=== PATIENT | male | born 1985 | race Caucasian/White ===

== ENCOUNTER 2017-02-11 01:03 | Emergency (ER) | payer SELFPAY ==
[~2017-02-11] VITALS: Ht 177.8 cm; Wt 101.0 kg
[~2017-02-11 01:03] MED LIST: NO CURRENT MEDS
[2017-02-11 01:05] VITALS: Ht 177.8 cm; Wt 101.0 kg
[2017-02-11] MEDS ORDERED: ONDANSETRON 4 MG INJ IV STA (01:33)
[2017-02-11] MEDS ORDERED: SOD CHLORIDE 0.9% 1,000 ML IV STA (01:33)
--- NOTE | 2017-02-11 01:42 | ERD ---
ER Documentation Chief Complaint Date/Time DATE: 02/11/17 TIME: 01:39 Chief Complaint dizziness since 1 hour ago, pt did not eat lunch and dinner today HPI 31-year-old male presents to emergency department for complaints of episodes of dizziness after having episodes of vomiting and bowel movements diarrhea tonight. Patient was in the bathroom, was having a bowel movement, having diarrhea and vomiting episodes, started to feel dizzy afterwards. Patient has not eaten the whole day, last meal was at 12. Patient denies any chest pain or palpitations. Patient denies loss of consciousness. Patient denies any abdominal pain. Patient denies any blood in the vomit blood in the stool or black stool. Patient denies any fever or chills. Patient denies any recent travel. Patient denies eating something new or different. ROS All systems reviewed and are negative except as per history of present illness. Medications Home Meds Reported Medications [No Current Meds] No Conflict Check 08/12/10 Allergies Allergies: Coded Allergies: No Known Drug Allergies (Verified Allergy, Mild, 08/12/10) PMhx/Soc Medical and Surgical Hx: pt denies Medical Hx, pt denies Surgical Hx History of Surgery: No Anesthesia Reaction: No Hx Neurological Disorder: No Hx Respiratory Disorders: No Hx Cardiac Disorders: No Hx Psychiatric Problems: No Hx Miscellaneous Medical Probl: No Hx Alcohol Use: Yes Hx Substance Use: No Hx Tobacco Use: No Smoking Status: Never smoker FmHx Family History: No coronary disease, No diabetes, No other Physical Exam Vitals Vital Signs Date Time Temp Pulse Resp B/P Pulse Ox O2 Delivery O2 Flow Rate FiO2 02/11/17 01:05 97.8 84 20 130/77 100 Physical Exam GENERAL: The patient is well developed and appropriate for usual state of health, in no apparent distress. CHEST: Clear to auscultation bilaterally. There are no rales, wheezes or rhonchi. HEART: Regular rate and rhythm. No murmurs, clicks, rubs or gallops. No S3 or S4. ABDOMEN: Soft, nontender and nondistended. Hyperactive bowel sounds. No rebound or guarding. No gross peritonitis. No gross organomegaly or masses. No Jeong sign or McBurney point tenderness. BACK: No midline or flank tenderness. EXTREMITIES: Equal pulses bilaterally. There is no peripheral clubbing, cyanosis or edema. No focal swelling or erythema. Full range of motion. Grossly neurovascularly intact. NEURO: Alert and oriented. Cranial nerves 2-12 intact. Motor strength in all 4 extremities with 5/5 strength. Sensation grossly intact. Normal speech and gait. SKIN: There is no apparent rash or petechia. The skin is warm and dry. HEMATOLOGIC AND LYMPHATIC: There is no evidence of excessive bruising or lymphedema. No gross cervical, axillary, or inguinal lymphadenopathy. Result Diagram: 02/11/1714402/11/17 0145 Results 24 hrs Laboratory Tests Test 02/11/17 01:45 White Blood Count 14.810^3/ul Red Blood Count 6.0910^6/ul Hemoglobin 17.5g/dl Hematocrit 51.6% Mean Corpuscular Volume 84.7fl Mean Corpuscular Hemoglobin 28.7pg Mean Corpuscular Hemoglobin Concent 33.9g/dl Red Cell Distribution Width 12.4% Platelet Count 36023^3/UL Mean Platelet Volume 11.3fl Neutrophils % 84.5% Lymphocytes % 7.3% Monocytes % 5.3% Eosinophils % 2.0% Basophils % 0.5% Nucleated Red Blood Cells % 0.0/100WBC Neutrophils # 12.510^3/ul Lymphocytes # 1.110^3/ul Monocytes # 0.810^3/ul Eosinophils # 0.310^3/ul Basophils # 0.110^3/ul Nucleated Red Blood Cells # 0.010^3/ul Urine Color YELLOW Urine Clarity CLEAR Urine pH 6.0 Urine Specific [place] >=1.030 Urine Ketones NEGATIVE Urine Nitrite NEGATIVE Urine Bilirubin NEGATIVE Urine Urobilinogen 0.2 E.U./dL Urine Leukocyte Esterase NEGATIVE Urine Microscopic RBC 2-5/HPF Urine Microscopic WBC 0-2/HPF Urine Mucus FEW Urine Hemoglobin TRACE Urine Glucose NEGATIVE% Urine Total Protein 1+ Sodium Level 142mmol/L Potassium Level 4.9mmol/L Chloride Level 97mmol/L Carbon Dioxide Level 30mmol/L Anion Gap 20 Blood Urea Nitrogen 15mg/dl Creatinine 0.88mg/dl Glucose Level 112mg/dl Calcium Level 10.3mg/dl Total Bilirubin 0.5mg/dl Direct Bilirubin 0.00mg/dl Indirect Bilirubin 0.5mg/dl Aspartate Amino Transf (AST/SGOT) 26IU/L Alanine Aminotransferase (ALT/SGPT) 48IU/L Alkaline Phosphatase 103IU/L Total Protein 8.9g/dl Albumin 5.1g/dl Globulin 3.80g/dl Albumin/Globulin Ratio 1.34 Lipase 66U/L Current Medications Medications (Trade) Dose Ordered Sig/Sabiha Route PRN Reason Start Time Stop Time Status Last Admin Dose Admin Sodium Chloride (NS) 1,000 ml @ 1,000 mls/hr Q1H STAT IV 02/11/17 01:33 02/11/17 02:32 DC 02/11/17 01:45 Ondansetron HCl (Zofran Inj) 4 mg ONCE STAT IV 02/11/17 01:33 02/11/17 01:35 DC 02/11/17 01:45 Patient was given Zofran here in the emergency department. After treatment, patient was able to tolerate po fluids here in the emergency department without any vomiting. There is no signs and symptoms of dehydration. Normal saline IV bolus was given here in emergency department for rehydration, patient tolerated IV fluids. Procedures/MDM Medical Decision Making: Patient's symptoms most likely consistent with viral gastroenteritis. Patient's dizziness was at this consistent with vasovagal episode. Low suspicion for neurologic emergency or cardiopulmonary emergencies at this time. There is low suspicion for abdominal emergencies at this time. Patients abdominal exam is normal at this time. Patient does not complain of abdominal pain. Radiology exam is not indicated at this time. There is low suspicion for appendicitis, cholecystitis, abdominal aortic aneurysms or peritonitis at this time. There is low suspicion for sepsis. Patient appears well and is hemodynamically stable. Disposition: Home. Condition: Stable Prescription Zofran, Bentyl Instructions: Patient is advised to take medications as prescribed. Patient is advised to rest, increase fluid intake and do brat diet for next 1-2 days and progress as tolerated. Patient is advised that if symptoms are worse, severe abdominal pain, uncontrolled vomiting, high fever, severe flank pain, worst signs and symptoms, to return to the emergency department immediately. Otherwise, patient can follow up with primary care doctor in 5-7 days. Departure Diagnosis: Primary Impression: Viral gastroenteritis Additional Impression: Vasovagal episode Condition: Stable Patient Instructions: Gastroenteritis, Viral (6Y-Adult), Near Syncope, Vasovagal Additional Instructions: Patient is advised to take medications as prescribed. Patient is advised to rest , increase fluid intake and do brat diet for next 1-2 days and progress as tolerated. Patient is advised that if symptoms are worse, severe abdominal pain , uncontrolled vomiting, high fever, severe flank pain, worst signs and symptoms , to return to the emergency department immediately. Otherwise, patient can follow up with primary care doctor in 5-7 days. RAMIREZ WALTON NP Feb 11, 2017 01:42
[2017-02-11 02:15] LABS: ADD UMIC YES; URINE BILIRUBIN (Dip) NEGATIVE (NEGATIVE); URINE BLOOD (Dip) TRACE (NEGATIVE); URINE COLOR YELLOW (YELLOW); URINE GLUCOSE (Dip) NEGATIVE (NEGATIVE); URINE KETONES (Dip) NEGATIVE (NEGATIVE); URINE LEUKOCYTE ESTERASE (Dip) NEGATIVE (NEGATIVE); URINE NITRITE (Dip) NEGATIVE (NEGATIVE); URINE TOTAL PROTEIN (Dip) 1+ (NEGATIVE); URINE UROBILINOGEN (Dip) 0.2 E.U./dL (0.1-1.0)
[2017-02-11 02:16] LABS: ADD SCAN DIFF NO
[2017-02-11 02:18] LABS: BASOPHIL # 0.1 10^3/ul (0.0-0.1); BASOPHILS % 0.5 % (0.0-2.0); EOSINOPHILS # 0.3 10^3/ul (0.0-0.5); HEMATOCRIT 51.6 % (42.0-52.0); HEMOGLOBIN 17.5 g/dl (14.0-18.0); LYMPHOCYTES # 1.1 10^3/ul (0.8-2.9); LYMPHOCYTES % 7.3 % (15.0-51.0); MEAN CORPUSCULAR HEMOGLOBIN 28.7 pg (29.0-33.0); MEAN CORPUSCULAR HGB CONC 33.9 g/dl (32.0-37.0); MEAN CORPUSCULAR VOLUME 84.7 fl (82.0-101.0); MEAN PLATELET VOLUME 11.3 fl (7.4-10.4); MONOCYTE # 0.8 10^3/ul (0.3-0.9); MONOCYTES % 5.3 % (0.0-11.0); NEUTROPHIL # 12.5 10^3/ul (1.6-7.5); NEUTROPHILS % 84.5 % (39.0-77.0); PLATELET COUNT 321 10^3/UL (140-415); RED BLOOD COUNT 6.09 10^6/ul (4.70-6.10); RED CELL DISTRIBUTION WIDTH 12.4 % (11.5-14.5); WHITE BLOOD COUNT 14.8 10^3/ul (4.8-10.8)
[2017-02-11 02:23] LABS: MUCUS,URINE FEW
[2017-02-11 02:31] LABS: ALBUMIN 5.1 g/dl (3.3-4.9)
[2017-02-11 02:32] LABS: POTASSIUM 4.9 mmol/L (3.5-5.1)
[2017-02-11 02:34] LABS: CREATININE 0.88 mg/dl (0.61-1.24)
[2017-02-11 02:35] LABS: ALBUMIN/GLOBULIN RATIO 1.34; CALCIUM 10.3 mg/dl (8.4-10.2); TOTAL PROTEIN 8.9 g/dl (6.1-8.1)
[2017-02-11 02:59] LABS: BILIRUBIN,INDIRECT 0.5 mg/dl (0-1.1); BILIRUBIN,TOTAL 0.5 mg/dl (0.2-1.3)
[2017-02-11] MEDS ORDERED: ONDA4TAB14 PO (03:11)
[2017-02-11] MEDS ORDERED: IBUP-1542 PO (03:11)
[2017-02-11] MEDS ORDERED: DICY10CA60 PO (03:11)
[2017-02-11 03:23] VITALS: BP 118/62; PULSE 82; RESP 18; TEMP 98.3
== END 2017-02-11 03:23 | disposition home or self-care (01) ==
LOC: FTE 01:03 → EDSEX 01:03 → FTE 03:23
DX: A08.4 Viral intestinal infection, unspecified (principal); R55 Syncope and collapse; R11.10 Vomiting, unspecified
CPT/HCPCS: 36415; 80053; 81001; 83690; 85025; 96374; 99284; J2405; J7030; 81003

== ENCOUNTER 2019-07-06 17:06 | Emergency (ER) | payer SELFPAY ==
[~2019-07-06] VITALS: Ht 170.2 cm; Wt 101.8 kg
[~2019-07-06 17:06] MED LIST changes: +DICY10CA40 PO; +FAMO-96 PO; +IBUP-1542 PO; +LORA-441 PO; +ONDA4TAB14 PO; +ONDA8TAB14 PO
[2019-07-06 17:16] VITALS: Ht 170.2 cm; Wt 101.8 kg
[2019-07-06 18:15] VITALS: BP 132/92; PULSE 80; RESP 16
[2019-07-06] MEDS ORDERED: IBUPROFEN 800 MG TAB PO ONE (18:30)
== END 2019-07-06 18:30 | disposition home or self-care (01) ==
LOC: E/R 17:06
DX: F41.1 Generalized anxiety disorder (principal)
CPT/HCPCS: 36415; 71045; 80048; 84484; 85025; 93005

== ENCOUNTER → 2019-07-09 | Emergency (ER) | payer SELFPAY ==
[~2019-07-09] VITALS: Ht 170.2 cm; Wt 101.0 kg
[~2019-07-09] MED LIST changes: -DICY10CA40 PO; +FAMOTIDINE 20 MG INJ IV ONE; -IBUP-1542 PO; +LORAZEPAM 0.5 MG TAB PO ONE; -NO CURRENT MEDS; -ONDA4TAB14 PO; +ONDANSETRON 4 MG INJ IV STA
[2019-07-09 09:00] VITALS: BP 121/75; PULSE 92; RESP 18; Ht 170.2 cm; Wt 101.0 kg
== END | disposition home or self-care (01) ==
LOC: FTE 08:53
DX: R00.2 Palpitations (principal); R10.13 Epigastric pain
CPT/HCPCS: 80053; 83690; 85025; J2405; 36415; 93005; 96374; 96375